=== PATIENT | female | born 1955 | race Caucasian/White ===

== ENCOUNTER 2018-09-08 15:04 | Inpatient (IN) ==
[2018-09-08] MEDS ORDERED: SODIUM CHLORIDE 0.9% 1000ML 2,000 ML IV ONE (15:22)
--- NOTE | 2018-09-08 15:25 | CT Scan Report ---
HEAD CT NONCONTRAST CT DOSE: 1074.96 mGy.cm HISTORY: Stroke symptoms. Stroke evaluation TECHNIQUE: Multiaxial CT images of the head were performed without the use of intravenous contrast. A utomated exposure control was utilized for this study. A dose lowering technique was utilized adheri ng to the principles of ALARA. Comparison: Head CT 12/10/2012. Findings: Mucosal thickening within the ethmoid air cells and bubbly secretions within the maxillary sinuses. The calvarium and skull base are intact. The ventricles and sulci are within normal limits. There is no mass, hematoma, midline shift, or acute infarct. Impression: No acute intracranial abnormality. Mild sinus disease as described above. Electronically signed by: Luke Wilson M.D. 09/08/2018 3:24 PM
[2018-09-08 15:35] LABS: Basophils # (auto) 0.02 K/uL (0-0.2); Basophils % (auto) 0.3 %; Eosinophils % (auto) 4.4 %; Hematocrit (blood only) 36.4 % (37-47); Hemoglobin 12.1 g/dL (12.0-16.0); Immature Granulocytes # (auto) 0.01 K/uL (0.00-0.02); Immature Granulocytes % (auto) 0.1 %; Lymphocytes # (auto) 2.58 K/uL (1.2-3.4); Mean Corpuscular Hgb Conc 33.2 g/dL (32-36); Mean Corpuscular Volume 93.3 fL (80-100); Mean Platelet Volume 10.2 fL (7.4-10.4); Monocytes # (auto) 0.29 K/uL (0.11-0.59); Monocytes % (auto) 4.3 %; Neutrophils # (auto) 3.59 K/uL (1.4-6.5); Neutrophils % (auto) 52.9 %; Platelet Count 201 K/uL (130-400); RDW Standard Deviation 47.7 fL (36.4-46.3); White Blood Count 6.79 K/uL (4.8-10.8)
[2018-09-08 15:52] LABS: Alanine Aminotransferase 21 U/L (12-78); Albumin Level 3.1 gm/dl (3.4-5.0); Aspartate Aminotransferase 18 U/L (15-37); BUN Creatinine Ratio 7.9 (10-20); Blood Urea Nitrogen 7 mg/dl (7-18); Calcium 8.2 mg/dl (8.5-10.1); Carbon Dioxide 23 mmol/L (21-32); Chloride 107 mmol/L (98-107); Creatinine Clr Calc Pharmacy 64.2 ml/min; Est GFR (African American) 85.7; Glucose 91 mg/dl (70-99); Magnesium 1.9 mg/dl (1.8-2.4); Potassium 3.4 mmol/L (3.5-5.1); Sodium 139 mmol/L (136-145)
[2018-09-08 15:57] LABS: Albumin Globulin Ratio 0.9 (0.9-2); Alkaline Phosphatase 66 U/L (45-117); Bilirubin,Total 0.2 mg/dl (0.2-1); Globulin 3.3 gm/dl (2.5-4.0); Total Protein 6.4 gm/dl (6.4-8.2); Troponin I < 0.015 ng/ml (0-0.045)
[2018-09-08 16:00] LABS: Partial Thromboplastin Time 26.2 Seconds (21.0-31.0); Prothrombin Time 10.7 Seconds (9.0-12.0)
[2018-09-08 16:12] LABS: Acetaminophen < 2 ug/ml (10-30)
[2018-09-08 16:26] LABS: Amphetamines+Metham, Urine Neg (Neg); Barbiturates, Urine Neg (Neg); Benzodiazepine, Urine Neg (Neg); Cocaine, Urine Neg (Neg); MDMA (Ecstacy), Urine Pos (Neg); Methadone, Urine Neg (Neg); Opiate, Urine Neg (Neg); Phencyclidine, Urine Neg (Neg)
[2018-09-08] MEDS ORDERED: SODIUM CHLORIDE 0.9% 1000ML 1,000 ML IV ONE (16:50)
--- NOTE | 2018-09-08 20:00 | Emergency Department Note ---
Entered by Enriqueta Holland acting as a scribe for Yo Desir DO History of Present Illness General Chief complaint: Overdose (Intentional) Source: patient, EMS and old records reviewed Limitations: other (mentation) History of Present Illness Provider complaint: stroke-symptoms Onset (ago): minute(s) (occurring around 1430 today) Location: head Quality: + other (stroke symptoms) The patient is a 62 year old female who presents to the Emergency Room with complaints of stroke symptoms occurring around 1430 today. The patient reports that nothing hurts. The patient does report drinking alcohol today. Limited HPI secondary to mentation. Review of EMR shows that the patient has a history of HTN, a TIA, and smoking. Per EMS call,the patient was smoking around 0230, then slumped in her chair with a right-sided deficit. Per EMS, the patient was not able to move her right arm initially but now is able to. Home Medications Home Medications Medication Instructions Recorded Confirmed Type albuterol sulfate 2 puff INHALATION Q4H PRN 09/08/18 09/08/18 History aspirin 81 mg PO DAILY 09/08/18 09/08/18 History atenolol 100 mg PO DAILY 09/08/18 09/08/18 History bupropion HCl [Wellbutrin SR] 100 mg PO BID 09/08/18 09/08/18 History clonazepam 1 - 2 mg PO DAILY PRN 09/08/18 09/08/18 History hydroxyzine pamoate 25 mg PO QID PRN 09/08/18 09/08/18 History methylphenidate HCl 18 mg PO QAM 09/08/18 09/08/18 History tizanidine 4 mg PO Q6H PRN 09/08/18 09/08/18 History Allergies Allergy/AdvReac Type Severity Reaction Status Date / Time codeine Allergy Mild Verified 09/08/18 17:15 Sulfa (Sulfonamide Allergy Mild Verified 09/08/18 17:15 Antibiotics) amoxicillin Allergy Unknown POSSIBLY Verified 09/08/18 17:15 CAUSED RASH clavulanic acid Allergy Unknown POSSIBLY Verified 09/08/18 17:15 CAUSED RASH Past Med/Surg History Medical History TIA (transient ischemic attack) (Acute) HTN (hypertension) (Chronic) Social History Smoking Status: Current every day smoker Review of Systems Limited ROS secondary to mentation. Physical Exam Vital Signs Vital Signs - 24 hr 09/08/18 15:22 09/08/18 15:39 09/08/18 16:00 Temperature 36.7 C Temperature Source Oral Sepsis Recent Fever Within 48 Hours No Sepsis New/Unexplained Change in Mental Status Yes Sepsis Action Taken by Nursing No Action Required Pulse Rate 63 56 L Pulse Rate [Apical] 65 Pulse Rate from SpO2 Sensor 55 L Respiratory Rate 18 18 14 Blood Pressure 84/53 L 86/49 L Blood Pressure [Right Arm] 94/50 L Blood Pressure Mean 63 61 Blood Pressure Mean [Right Arm] 64 Pulse Oximetry 93 100 99 Oxygen Delivery Method Room Air Nasal Cannula Oxygen Flow Rate 2 09/08/18 16:22 09/08/18 16:30 09/08/18 17:10 Temperature Temperature Source Sepsis Recent Fever Within 48 Hours Sepsis New/Unexplained Change in Mental Status Sepsis Action Taken by Nursing Pulse Rate 57 L 54 L 53 L Pulse Rate [Apical] Pulse Rate from SpO2 Sensor 56 L 54 L Respiratory Rate 18 18 18 Blood Pressure 71/45 L 88/47 L 88/50 L Blood Pressure [Right Arm] Blood Pressure Mean 53 60 62 Blood Pressure Mean [Right Arm] Pulse Oximetry 100 99 98 Oxygen Delivery Method Oxygen Flow Rate 2 2 2 09/08/18 17:15 09/08/18 17:39 09/08/18 18:01 Temperature Temperature Source Sepsis Recent Fever Within 48 Hours Sepsis New/Unexplained Change in Mental Status Sepsis Action Taken by Nursing Pulse Rate 51 L 65 65 Pulse Rate [Apical] Pulse Rate from SpO2 Sensor 51 L 65 Respiratory Rate 18 18 20 Blood Pressure 82/48 L 98/61 L 111/69 Blood Pressure [Right Arm] Blood Pressure Mean 59 73 83 Blood Pressure Mean [Right Arm] Pulse Oximetry 99 96 98 Oxygen Delivery Method Nasal Cannula Oxygen Flow Rate 2 2 09/08/18 18:40 09/08/18 18:47 09/08/18 18:50 Temperature Temperature Source Sepsis Recent Fever Within 48 Hours Sepsis New/Unexplained Change in Mental Status Sepsis Action Taken by Nursing Pulse Rate 63 63 65 Pulse Rate [Apical] Pulse Rate from SpO2 Sensor 63 63 65 Respiratory Rate 18 18 19 Blood Pressure 100/53 L 130/77 Blood Pressure [Right Arm] Blood Pressure Mean 68 94 Blood Pressure Mean [Right Arm] Pulse Oximetry 100 100 99 Oxygen Delivery Method Oxygen Flow Rate 2 09/08/18 19:00 09/08/18 19:02 09/08/18 19:10 Temperature Temperature Source Sepsis Recent Fever Within 48 Hours Sepsis New/Unexplained Change in Mental Status Sepsis Action Taken by Nursing Pulse Rate 63 65 65 Pulse Rate [Apical] Pulse Rate from SpO2 Sensor 62 66 65 Respiratory Rate 18 19 15 Blood Pressure 126/74 Blood Pressure [Right Arm] Blood Pressure Mean 91 Blood Pressure Mean [Right Arm] Pulse Oximetry 98 100 100 Oxygen Delivery Method Oxygen Flow Rate 09/08/18 19:15 09/08/18 19:20 Temperature Temperature Source Sepsis Recent Fever Within 48 Hours Sepsis New/Unexplained Change in Mental Status Sepsis Action Taken by Nursing Pulse Rate 60 63 Pulse Rate [Apical] Pulse Rate from SpO2 Sensor 60 63 Respiratory Rate 20 18 Blood Pressure 129/76 Blood Pressure [Right Arm] Blood Pressure Mean 93 Blood Pressure Mean [Right Arm] Pulse Oximetry 99 99 Oxygen Delivery Method Oxygen Flow Rate GENERAL: Laying in bed, moaning, moving all extremities, disheveled, smells of alcohol on breath. MOUTH: Crushed pills present. EYE EXAM: normal conjunctiva. PERRL and EOM's grossly intact. OROPHARYNX: no exudate, no erythema, lips, buccal mucosa, and tongue normal and mucous membranes are moist NECK: supple, no nuchal rigidity, no adenopathy, non-tender LUNGS: Clear to auscultation. Normal chest wall mechanics HEART: no murmurs, S1 normal and S2 normal ABDOMEN: abdomen soft, non-tender, normo-active bowel, sounds, no masses, no rebound or guarding. BACK: Back is symmetrical on inspection and there is no deformity, no midline tenderness, no CVA tenderness. SKIN: no rashes and no bruising UPPER EXTREMITIES: upper extremities are grossly normal. LOWER EXTREMITIES: No pitting edema. NEURO EXAM: Awakens to sternal rub, able to state name but falls asleep quickly. Moving all extremities. Non-focal. Course ED COURSE: Vital signs were reviewed and showed hypotension. The patients medical record was reviewed The above diagnostic studies were performed and reviewed. ED treatments and interventions as stated above. 1504: The patient was taken to CT scan. 1512: The patient was evaluated in room A1. A complete history and physical examination was performed. 1520: Per nursing staff, the patient did take her Clonazepam. Nursing staff states that the patient stated that she "does not want to live anymore because her life sucks." 1523: I discussed the patient's case with Dr. Redmond [facility] who said to treat the patient clinically. 1604: I spoke with the patient's who said that the patient has made suicidal statements before. 1653: I discussed the patient's case with Maine Louis who will evaluate the patient for further management. Consultations Consultation #1: Dr. Shabazz Neurology Time: 15:23 Consultation #2: Maine Louis Time: 16:53 Administered Medications Discontinued Medications Sodium Chloride (Nss 1000ml) 2,000 mls @ 999 mls/hr IV .Q2H1M ONE Stop: 09/08/18 17:22 Last Infusion: 09/08/18 17:28 Dose: 0 mls/hr Documented by: [id number] Admin: 09/08/18 15:41 Dose: 999 mls/hr Documented by: [id number] Sodium Chloride (Nss 1000ml) 1,000 mls @ 999 mls/hr IV .Q1H1M ONE Stop: 09/08/18 17:50 Last Infusion: 09/08/18 17:35 Dose: 0 mls/hr Documented by: [id number] Admin: 09/08/18 16:45 Dose: 999 mls/hr Documented by: [id number] Medical Decision Making Differential Diagnosis Differential diagnosis: Etiologies such as toxicological process, infection, hypoglycemia, electrolyte abnormalities, cardiac sources, intracerebral event, neurologic process, as well as others were entertained. Medical Records Attestation: I reviewed the patient's medical records. Home Medications Current Medication List: was personally reviewed by me Laboratory Data Attestation: I reviewed the patient's lab results. Result diagrams: 09/08/18 15:19 09/08/18 15: Lab Results 09/08/18 09/08/18 09/08/18 Range/Units 15:19 15:19 15:19 WBC 6.79 (4.8-10.8) K/uL RBC 3.90 L (4.2-5.4) M/uL Hgb 12.1 (12.0-16.0) g/dL Hct 36.4 L (37-47) % MCV 93.3 (80-100) fL MCH 31.0 (25-34) pg MCHC 33.2 (32-36) g/dL RDW Std Deviation 47.7 H (36.4-46.3) fL RDW Coeff of Malik 14.0 (11.5-14.5) % Plt Count 201 (130-400) K/uL MPV 10.2 (7.4-10.4) fL Immature Gran % (Auto) 0.1 % Neut % (Auto) 52.9 % Lymph % (Auto) 38.0 % [place] % (Auto) 4.3 % Eos % (Auto) 4.4 % Baso % (Auto) 0.3 % Immature Gran # (Auto) 0.01 (0.00-0.02) K/uL Neut # (Auto) 3.59 (1.4-6.5) K/uL Lymph # (Auto) 2.58 (1.2-3.4) K/uL [place] # (Auto) 0.29 (0.11-0.59) K/uL Eos # (Auto) 0.30 (0-0.5) K/uL Baso # (Auto) 0.02 (0-0.2) K/uL PT 10.7 (9.0-12.0) Seconds INR 1.0 (0.9-1.1) APTT 26.2 (21.0-31.0) Seconds PTT Ratio 1.0 Sodium 139 (136-145) mmol/L Potassium 3.4 L (3.5-5.1) mmol/L Chloride 107 (98-107) mmol/L Carbon Dioxide 23 (21-32) mmol/L Anion Gap 8.0 (3-11) BUN 7 (7-18) mg/dl Creatinine 0.84 (0.6-1.2) mg/dl Est Cr Clr Drug Dosing 64.2 ml/min Est GFR ( Amer) 85.7 Est GFR (Non-Af Amer) 74.0 BUN/Creatinine Ratio 7.9 L (10-20) Glucose 91 (70-99) mg/dl Calcium 8.2 L (8.5-10.1) mg/dl Magnesium 1.9 (1.8-2.4) mg/dl Total Bilirubin 0.2 (0.2-1) mg/dl AST 18 (15-37) U/L ALT 21 (12-78) U/L Alkaline Phosphatase 66 (45-117) U/L Troponin I < 0.015 (0-0.045) ng/ml Total Protein 6.4 (6.4-8.2) gm/dl Albumin 3.1 L (3.4-5.0) gm/dl Globulin 3.3 (2.5-4.0) gm/dl Albumin/Globulin Ratio 0.9 (0.9-2) Salicylates (2.8-20) mg/dl Urine Opiates Screen (Neg) Ur Methadone, Qual (Neg) Acetaminophen (10-30) ug/ml Urine Barbiturates (Neg) Ur Phencyclidine (PCP) (Neg) U Amphetamin/Meth Scrn (Neg) Urine MDEA MDMA (Ecstasy) Screen (Neg) MDMA Urine MDMA U Benzodiazepines Scrn (Neg) Ur Cocaine Metabolite (Neg) U Marijuana (THC) Screen (Neg) Ethyl Alcohol mg/dL (0-3) mg/dl Blood Type Antibody Screen 09/08/18 09/08/18 09/08/18 Range/Units 15:19 15:19 15:26 WBC (4.8-10.8) K/uL RBC (4.2-5.4) M/uL Hgb (12.0-16.0) g/dL Hct (37-47) % MCV (80-100) fL MCH (25-34) pg MCHC (32-36) g/dL RDW Std Deviation (36.4-46.3) fL RDW Coeff of Malik (11.5-14.5) % Plt Count (130-400) K/uL MPV (7.4-10.4) fL Immature Gran % (Auto) % Neut % (Auto) % Lymph % (Auto) % [place] % (Auto) % Eos % (Auto) % Baso % (Auto) % Immature Gran # (Auto) (0.00-0.02) K/uL Neut # (Auto) (1.4-6.5) K/uL Lymph # (Auto) (1.2-3.4) K/uL [place] # (Auto) (0.11-0.59) K/uL Eos # (Auto) (0-0.5) K/uL Baso # (Auto) (0-0.2) K/uL PT (9.0-12.0) Seconds INR (0.9-1.1) APTT (21.0-31.0) Seconds PTT Ratio Sodium (136-145) mmol/L Potassium (3.5-5.1) mmol/L Chloride (98-107) mmol/L Carbon Dioxide (21-32) mmol/L Anion Gap (3-11) BUN (7-18) mg/dl Creatinine (0.6-1.2) mg/dl Est Cr Clr Drug Dosing ml/min Est GFR ( Amer) Est GFR (Non-Af Amer) BUN/Creatinine Ratio (10-20) Glucose (70-99) mg/dl Calcium (8.5-10.1) mg/dl Magnesium (1.8-2.4) mg/dl Total Bilirubin (0.2-1) mg/dl AST (15-37) U/L ALT (12-78) U/L Alkaline Phosphatase (45-117) U/L Troponin I (0-0.045) ng/ml Total Protein (6.4-8.2) gm/dl Albumin (3.4-5.0) gm/dl Globulin (2.5-4.0) gm/dl Albumin/Globulin Ratio (0.9-2) Salicylates 3.0 (2.8-20) mg/dl Urine Opiates Screen (Neg) Ur Methadone, Qual (Neg) Acetaminophen < 2 L (10-30) ug/ml Urine Barbiturates (Neg) Ur Phencyclidine (PCP) (Neg) U Amphetamin/Meth Scrn (Neg) Urine MDEA MDMA (Ecstasy) Screen (Neg) MDMA Urine MDMA U Benzodiazepines Scrn (Neg) Ur Cocaine Metabolite (Neg) U Marijuana (THC) Screen (Neg) Ethyl Alcohol mg/dL 273.5 H (0-3) mg/dl Blood Type O Positive Antibody Screen NEGATIVE 09/08/18 09/08/18 Range/Units 15:31 15:31 WBC (4.8-10.8) K/uL RBC (4.2-5.4) M/uL Hgb (12.0-16.0) g/dL Hct (37-47) % MCV (80-100) fL MCH (25-34) pg MCHC (32-36) g/dL RDW Std Deviation (36.4-46.3) fL RDW Coeff of Malik (11.5-14.5) % Plt Count (130-400) K/uL MPV (7.4-10.4) fL Immature Gran % (Auto) % Neut % (Auto) % Lymph % (Auto) % [place] % (Auto) % Eos % (Auto) % Baso % (Auto) % Immature Gran # (Auto) (0.00-0.02) K/uL Neut # (Auto) (1.4-6.5) K/uL Lymph # (Auto) (1.2-3.4) K/uL [place] # (Auto) (0.11-0.59) K/uL Eos # (Auto) (0-0.5) K/uL Baso # (Auto) (0-0.2) K/uL PT (9.0-12.0) Seconds INR (0.9-1.1) APTT (21.0-31.0) Seconds PTT Ratio Sodium (136-145) mmol/L Potassium (3.5-5.1) mmol/L Chloride (98-107) mmol/L Carbon Dioxide (21-32) mmol/L Anion Gap (3-11) BUN (7-18) mg/dl Creatinine (0.6-1.2) mg/dl Est Cr Clr Drug Dosing ml/min Est GFR ( Amer) Est GFR (Non-Af Amer) BUN/Creatinine Ratio (10-20) Glucose (70-99) mg/dl Calcium (8.5-10.1) mg/dl Magnesium (1.8-2.4) mg/dl Total Bilirubin (0.2-1) mg/dl AST (15-37) U/L ALT (12-78) U/L Alkaline Phosphatase (45-117) U/L Troponin I (0-0.045) ng/ml Total Protein (6.4-8.2) gm/dl Albumin (3.4-5.0) gm/dl Globulin (2.5-4.0) gm/dl Albumin/Globulin Ratio (0.9-2) Salicylates (2.8-20) mg/dl Urine Opiates Screen Neg (Neg) Ur Methadone, Qual Neg (Neg) Acetaminophen (10-30) ug/ml Urine Barbiturates Neg (Neg) Ur Phencyclidine (PCP) Neg (Neg) U Amphetamin/Meth Scrn Neg (Neg) Urine MDEA Cancelled MDMA (Ecstasy) Screen Pos H (Neg) MDMA Cancelled Urine MDMA Cancelled U Benzodiazepines Scrn Neg (Neg) Ur Cocaine Metabolite Neg (Neg) U Marijuana (THC) Screen Neg (Neg) Ethyl Alcohol mg/dL (0-3) mg/dl Blood Type Antibody Screen Imaging Data Radiologist's Impression: Radiology results as stated below per my review and the radiologist's interpretation: HEAD CT NONCONTRAST CT DOSE: 1074.96 mGy.cm HISTORY: Stroke symptoms. Stroke evaluation TECHNIQUE: Multiaxial CT images of the head were performed without the use of intravenous contrast. Automated exposure control was utilized for this study. A dose lowering technique was utilized adhering to the principles of ALARA. Comparison: Head CT 12/10/2012. Findings: Mucosal thickening within the ethmoid air cells and bubbly secretions within the maxillary sinuses. The calvarium and skull base are intact. The ventricles and sulci are within normal limits. There is no mass, hematoma, midline shift, or acute infarct. Impression: No acute intracranial abnormality. Mild sinus disease as described above. Electronically signed by: Luke Wilson M.D. 09/08/2018 3:24 PM ECG Data Attestation: I personally reviewed and interpreted this ECG as follows: Indication: other (toxicologic) Rate (beats per minute): 65 Rhythm: sinus rhythm Findings: + other (normal axis); no PVC Blood Pressure Blood Pressure Findings: Low blood pressure Blood Pressure Disposition: further management by hospitalist DELVIS Narrative Patient is a 62-year-old female that presents the ER as a stroke alert. Paramedics she was unresponsive with her right side being flaccid. Upon arrival she had a smell of alcohol on her did appear to have crushed up pills in her mouth. IV was established and labs were obtained and shows no significant leukocytosis or anemia. INR was unremarkable. BMP with mild hypokalemia. LFTs troponin was unremarkable. Tox was positive for MDMA. Salicylates and acetami nophen was negative. Alcohol was positive at 275. Do favor the pills in the mouth were benzos. Patient was slightly coherent and was making statements that she went to and did not want to live. CT head was negative. She was given 3 L IV normal saline and systolic pressures were intermittently in the 70s and 80s. He did trend upwards into the 90s. EKG was unremarkable. Discussed with the hospitalist patient was admitted for further workup likely secondary to multidrug overdose. Impression & Plan Benzodiazepine overdose, Alcohol abuse, Alcohol overdose Critical Care Time I have personally spent greater than 35 minutes of critical care time in the direct management of this patient. This includes bedside care, interpretation of diagnostic studies, and testing, discussion with consultants, patient, and family members, and other required patient management activities. This 35 minutes is in excess of all separately billable procedures. Critical Care Time: Yes Total Critical Care Time: 35 Discharge Plan Visit Data Chief Complaint: Overdose (Intentional) ED Provider: Yo Desir Discharge Problem: Benzodiazepine overdose, Alcohol abuse, Alcohol overdose Patient Disposition: Being Evaluated by Hospitalist Forms Stand Alone Forms: [facility] Prescriptions Prescriptions: No Action tizanidine 4 mg tablet 4 mg PO Q6H PRN (Reason: Muscle Spasm) RF: 0 clonazepam 1 mg tablet 1 - 2 mg PO DAILY PRN (Reason: Sleep) RF: 0 atenolol 25 mg tablet 100 mg PO DAILY RF: 0 aspirin 81 mg Tablet,Delayed Release (Dr/Ec) 81 mg PO DAILY RF: 0 bupropion HCl [Wellbutrin SR] 100 mg tablet sustained-release 12 hr 100 mg PO BID RF: 0 methylphenidate HCl 18 mg tablet extended release 24hr 18 mg PO QAM RF: 0 hydroxyzine pamoate 25 mg capsule 25 mg PO QID PRN (Reason: Anxiety) RF: 0 albuterol sulfate 2 puff 2 puff Inhalation Q4H PRN (Reason: Shortness Of Breath Or Wheezing) RF: 0 Referrals Referrals: Adam Rooney [Primary Care Provider] - Discharge Problem: Benzodiazepine overdose Qualifiers: Encounter type: initial encounter Injury intent: undetermined intent Qualified Code(s): T42.4X4A - Poisoning by benzodiazepines, undetermined, initial encounter Alcohol overdose Qualifiers: Encounter type: initial encounter Injury intent: undetermined intent Qualified Code(s): T51.94XA - Toxic effect of unspecified alcohol, undetermined, initial encounter The scribe's documentation has been prepared under my direction and personally reviewed by me in its entirety. I confirm that the note above accurately reflects all work, treatment, procedures, and medical decision making performed by me.
[2018-09-08] MEDS: NICOTINE 21 MG/24 HR TDSY TD SCH (20:12)
[2018-09-08] MEDS ORDERED: NITROGLYCERIN SL 0.4 MG/TAB TAB SL PRN (21:08)
[2018-09-08] MEDS ORDERED: ALBUT/IPRATROP 3MG/0.5MG NEB 3 ML VIAL NEB PRN (21:08)
[2018-09-08] MEDS ORDERED: THIAMINE HCL 100 MG TAB PO STA (21:46)
[2018-09-08] MEDS ORDERED: MULTI-VITAMIN INFUSION 10 ML, THIAMINE HCL 100 MG, FOLIC ACID 1 MG in SODIUM CHLORIDE 0... IV SCH (22:00)
[2018-09-08] MEDS ORDERED: POTASSIUM CHLORIDE 10 MEQ TABCR PO STA (22:53)
--- NOTE | 2018-09-08 22:58 | History and Physical Report ---
DATE OF ADMISSION: 09/08/2018 CHIEF COMPLAINT: Unresponsive episode, drug overdose. HISTORY OF PRESENT ILLNESS: This is a 62-year-old female with past medical history significant for chronic bronchitis, hypertension, irritable bowel syndrome, history of depression, tobacco abuse disorder, ADHD, who lives with her family, was brought in because of unresponsive episode. As per family, she drinks daily, but in the last 1-2 months she is trying to quit on her own and she is getting paranoid, hallucinations, and she saw her counselor recently who placed her on bupropion. Last night she complained of headache, dizziness, seems did not drink yesterday and today morning she went and bought 1 L of gin and drank whole bottle and around 2pm she was fine, talking, walking; around 2:30 daughter says that she generally goes outside to smoke and she found her unresponsive in her room. EMS was called in. Initially, there was question of some weakness in the right leg. Stroke alert was called, but when she came to the ER, she was able to arouse with a deep sternal rub and moved her extremities. CT of the head was unremarkable. Blood pressure on the lower side and she got the fluids in the ER and slowly improving. Heart rate, initially was bradycardic. Initially, she was very difficult to arouse and when asked says life sucks and she could not tell her name, and that she was surprised she is in the hospital. Later she was more alert and awake and her heart rate and blood pressure improved. She admitted to taking couple of doses of extra atenolol and thinks she might have taken few doses of extra Klonopin, hydroxyzine, and tizanidine. She says that she purposefully took it to just pass out and says her life sucks. Denies any chest pain. No nausea, no vomiting, no shortness of breath, no abdominal pain, no cough, no recent fever or chills. As per family, normal bowel and bladder movements. Appetite not that great in the last few days. Could not get much review of symptoms from the patient at this time.Pills were found in her mouth when she came in. ALLERGIES: AUGMENTIN, CIPROFLOXACIN, CLINDAMYCIN, CODEINE, CYCLOBENZAPRINE, MORPHINE, STRATTERA, SULFA ANTIBIOTICS. PAST MEDICAL HISTORY: As mentioned above. PAST SURGICAL HISTORY: Colonoscopy with biopsy, EGD, dilatation, tonsillectomy, vaginal delivery. MEDICATIONS: The patient is on atenolol 100 mg p.o. daily, bupropion 100 mg p.o. b.i.d. time, Klonopin 1 to 2 tablets b.i.d. p.r.n., Zanaflex 4 mg p.o. q. 6 hours p.r.n., methylphenidate 18 mg p.o. daily, albuterol 2 puffs every 4 hours p.r.n., DuoNebs every 6 hours p.r.n., hydroxyzine 25 mg p.o. daily as needed, aspirin 325 mg one tablet 4 times a week, multivitamins daily. FAMILY HISTORY: Significant for mother had blood clots, hepatitis C, heart disorder. Father has heart disorder, cancer. Daughter has allergies, asthma, hepatitis C. SOCIAL HISTORY: Lives with her and daughter. Smokes half pack a day for the last 30 years. Alcohol, drinks daily. Drugs, occasional marijuana. REVIEW OF SYSTEMS: As per HPI. Rest of the review of systems could not be obtained at this time. PHYSICAL EXAMINATION: GENERAL: The patient initially was drowsy, but now alert and awake, not in acute distress. VITAL SIGNS: Temperature 36.7, pulse ranging from 54-65, blood pressure was 71/45, currently 111/69, oxygen 98% on 2 liters. HEENT: No pallor, no icterus. Pupils equal, round, reactive to light. Oral mucosa dry. NECK: No JVD, no carotid bruits, no neck masses. CARDIOVASCULAR: S1, S2 heard, regular rate and rhythm, no murmur, no gallop. RESPIRATORY SYSTEM: Normal AP diameter. No accessory muscle use. No wheezing, no crackles. ABDOMEN: Soft, bowel sounds present, nontender. No distention. CENTRAL NERVOUS SYSTEM: Alert and awake. Initially was disoriented to name. Currently, obeys simple commands, moves extremities. Nonfocal e. LABORATORY DATA: WBC 6.7, hemoglobin 12.1, hematocrit 36.4, platelets 201. PT 10.7, INR 1, APTT 26.2. Sodium 139, potassium 3.4, chloride 107, bicarb 23, BUN 7, creatinine 0.8, serum glucose 91, calcium 8.2, magnesium 1.9, total bilirubin 0.2, AST 18, ALT 21, alkaline phosphatase 66, troponin I less than 0.015. Toxicology screen, salicylates 3, Tylenol less than 2, MDMA screen positive, ethyl alcohol 273. IMAGING DATA: CT of the head, no acute intracranial abnormality. EKG: Normal sinus rhythm at rate of 65, no acute ST changes seen. ASSESSMENT AND PLAN: This is a 62-year-old female who presents with unresponsive episode, mostly from alcoholism and drug overdose. 1. Unresponsive episode, mostly from alcoholism and drug overdose. Drank about a liter of gin today, alcohol is 273. 2. Took extra doses of home medications, Klonopin, atenolol, hydroxyzine, and Zanaflex. She says she took about 2-3 extra tablets. Initially was bradycardic and hypotensive in the ER and unresponsive. CT of the head is unremarkable. Later she was more alert and awake and the vitals are stabilized. Received fluids in the ER. Spoke with poison control, advised to observe and repeat labs in a.m. and if QTs prolong, to give magnesium to keep magnesium level greater than 2 and if QRS widens greater 120, to give bicarbonate. Currently, she is okay. We will repeat EKG in the a.m. Closely monitor in the tele floor. We will hold her home medications. Consult psychiatry in the morning as patient says she took her medication to pass out and seems depressed.One on one observation. 3. Alcoholism. The patient drinks daily. As per family, she is trying to quit on her own the last 2 months and she is getting hallucinations and paranoid probably from the withdrawals and she drank 1 liter of alcohol today and also took extra dose of Klonopin. Her alcohol level is 273. We will give her banana bag, p.o. thiamine, and multivitamin from a.m. and because the patient already took extra dose of Klonopin for today and she is somewhat drowsy will start her on alcohol withdrawal protocol with gabapentin from the a.m. and closely monitor in the tele floor for any withdrawal symptoms. 4. Hypertension. Currently hypotension. She is on atenolol 100 mg daily at home, currently overdosed. She says on top of her regular dose, she took about 2 or 3 tablets extra. We will hold atenolol for now and monitor her blood pressure. When the blood pressure comes up, will start her home medication. 5. History of attention deficit hyperactivity disorder. We will hold the home meds for now. Psychiatry Consulted. 6. Chronic bronchitis, tobacco abuse. Will continue her home inhalers and nebs. Will hold Wellbutrin for now. 7. Deep venous thrombosis prophylaxis, sequential compression devices for now. 8. Disposition: Closely monitor in the tele floor. Level 1 full code. MTDD
[2018-09-09] MEDS ORDERED: SODIUM CHLORIDE 0.9% 1000ML 1,000 ML IV SCH
[2018-09-09 05:50] LABS: Basophils # (auto) 0.03 K/uL (0-0.2); Basophils % (auto) 0.3 %; Eosinophils # (auto) 0.29 K/uL (0-0.5); Eosinophils % (auto) 3.3 %; Hematocrit (blood only) 37.1 % (37-47); Hemoglobin 12.3 g/dL (12.0-16.0); Immature Granulocytes # (auto) 0.01 K/uL (0.00-0.02); Immature Granulocytes % (auto) 0.1 %; Lymphocytes # (auto) 1.43 K/uL (1.2-3.4); Lymphocytes % (auto) 16.5 %; Mean Corpuscular Hgb Conc 33.2 g/dL (32-36); Mean Corpuscular Volume 93.7 fL (80-100); Mean Platelet Volume 10.2 fL (7.4-10.4); Monocytes # (auto) 0.53 K/uL (0.11-0.59); Monocytes % (auto) 6.1 %; Neutrophils # (auto) 6.39 K/uL (1.4-6.5); Neutrophils % (auto) 73.7 %; Platelet Count 187 K/uL (130-400); RDW Coefficient of Variation 14.2 % (11.5-14.5); RDW Standard Deviation 48.9 fL (36.4-46.3); Red Blood Count 3.96 M/uL (4.2-5.4); White Blood Count 8.68 K/uL (4.8-10.8)
[2018-09-09 06:29] LABS: Alanine Aminotransferase 28 U/L (12-78); Albumin Level 3.2 gm/dl (3.4-5.0); Alkaline Phosphatase 67 U/L (45-117); Aspartate Aminotransferase 34 U/L (15-37); Bilirubin Direct < 0.1 mg/dl (0-0.2); Bilirubin,Total 0.4 mg/dl (0.2-1); Total Protein 6.4 gm/dl (6.4-8.2)
[2018-09-09 07:00] LABS: BUN Creatinine Ratio 9.3 (10-20); Calcium 7.9 mg/dl (8.5-10.1); Creatinine Clr Calc Pharmacy 85.6 ml/min; Est GFR (African American) 110.6; Est GFR (Non-African American) 95.5; Magnesium 1.6 mg/dl (1.8-2.4); Potassium 4.2 mmol/L (3.5-5.1)
[2018-09-09 08:02] LABS: Folate (Folic Acid) > 24.00 ng/ml (>5.38); Vitamin B12 747 pg/ml (211-911)
[2018-09-09] MEDS ORDERED: CEROVITE ADV FORMULA TAB PO SCH (09:00)
[2018-09-09] MEDS: NICOTINE 21 MG/24 HR TDSY TD SCH (09:24)
[2018-09-09] MEDS: MAGNESIUM SULFATE / D5W 1 GM/100 ML BAG IV SCH ×4 (09:24→12:48)
[2018-09-09] MEDS ORDERED: ATENOLOL 50 MG TABLET PO ONE (11:02)
--- NOTE | 2018-09-09 11:09 | Hospitalist Progress Note ---
Date of Service September 09, 2018 Assessment & Plan (1) Depression with suicidal ideation: Feels fine this morning. Hemodynamically stable and asking for food. States she feels stupid and appears remorseful about how she ended up here. Source of stress is reported in her life. She reports having a plan on how to avoid this moving forward. States she has never had suicidal ideations in the past. She is never been hospitalized for mental health condition. She reports a known history of ADHD and was previously on Concerta but this was making her feel bad. Her psychiatrist recommended she continue Wellbutrin therapy and counseling and this will treat the ADHD as well. Will await psychiatric disposition regarding need for inpatient treatment. (2) Alcohol overdose: Doing well. Continues on alcohol withdrawal protocol. (3) Palpitations: Takes atenolol 100 mg daily for palpitations. She reports overdosing only on clonazepam and states that she needs her atenolol as she feels withdrawal symptoms. Heart rate stable overnight. No glucagon was needed. Will continue atenolol now. (4) Smoker: NicoDerm patch. (5) DVT prophylaxis: SCDs, ambulation Full code Disposition-pending psychiatric recommendations. Patient is medically stable for discharge. Sandra Downs DO [facility] Hospitalist Subjective 62-year-old female who suffers from ADHD and depression at baseline presented to the hospital after overdosing on alcohol and multiple medications. This morning she reports she only took an excess of clonazepam. She reports not having a plan to hurt herself but has been dealing with mental abuse and was very passive in her actions. She is remorseful this morning and denies any suicidal ideations at this time. She is hungry and asking for regular food. She reports her palpitations are present which is a chronic issue for her and she needs her atenolol. She smokes at baseline. Physical Exam Vital Signs (Past 24 Hours): Last Vital Signs Temp 36.5 C 09/09/18 07:25 Pulse 73 09/09/18 07:25 Resp 16 09/09/18 07:25 BP 151/82 H 09/09/18 07:25 Pulse Ox 96 09/09/18 07:25 CONSTITUTIONAL: WNWD, vitals as above, generally well-appearing EYES: normal conjuctivae, no scleral icterus ENT: MMM NECK: trachea midline RESPIRATORY: clear to auscultation bilaterally, no crackles, rales or wheezes, normal respiratory effort CARDIOVASCULAR: regular rate and rhythm, S1 and 2 heard without murmurs, gallops or rubs, no JVD, no peripheral edema GASTROINTESTINAL: normal bowel sounds, soft, nontender, nondistended MUSCULOSKELETAL: strength 5/5 throughout, head is normocephalic and atraumatic SKIN: warm and dry, no track ferris on arms or rashes present NEUROLOGIC: No facial palsy, no dysarthria. CN 2-12 grossly intact, no sensory deficit, normal cognition, normal speech, no tremor PSYCHIATRIC: alert cooperative and oriented to person, place and time. Normal affect. Results & Data Laboratory Results Short CBC 09/08/18 09/09/18 Range/Units 15: 05:40 WBC 6.79 8.68 (4.8-10.8) K/uL Hgb 12.1 12.3 (12.0-16.0) g/dL Hct 36.4 L 37.1 (37-47) % Plt Count 201 187 (130-400) K/uL BMP 09/08/18 09/09/18 15:19 05:40 Sodium 139 142 Potassium 3.4 L 4.2 D Chloride 107 115 H Carbon Dioxide 23 22 BUN 7 6 L Creatinine 0.84 0.63 Glucose 91 85 Calcium 8.2 L 7.9 L Cardiac Enzymes 09/08/18 Range/Units 15:19 Troponin I < 0.015 (0-0.045) ng/ml Liver Function 09/08/18 09/09/18 Range/Units 15:19 05:40 Total Bilirubin 0.2 0.4 (0.2-1) mg/dl Direct Bilirubin < 0.1 (0-0.2) mg/dl AST 18 34 (15-37) U/L ALT 21 28 (12-78) U/L Alkaline Phosphatase 66 67 (45-117) U/L Albumin 3.1 L 3.2 L (3.4-5.0) gm/dl Medications Administered Current Inpatient Medications Albuterol (Duoneb) 3 ml NEB Q4H PRN PRN Reason: Shortness Of Breath Or Wheezing Stop: 10/08/18 21:07 Atenolol (Tenormin) 100 mg PO NOW ONE Stop: 09/09/18 11:03 Sodium Chloride (Nss 1000ml) 1,000 mls @ 100 mls/hr IV .Q10H [place] Stop: 10/09/18 00:00 Last Infusion: 09/09/18 09:24 Dose: 0 mls/hr Documented by: Magnesium Sulfate/Dextrose (Magnesium Sulfate / D5w) 1 gm in 100 mls @ 100 mls/hr IV Q1H [place] Stop: 09/09/18 12:59 Last Admin: 09/09/18 10:30 Dose: 100 mls/hr Documented by: Miscellaneous (Remove Nicoderm Patch) 1 ea N/A HS [facility] Stop: 10/09/18 20:59 Multivitamins/Minerals (Multivitamin W/ Minerals Tab) 1 tab PO QAM [facility] Stop: 10/09/18 08:59 Last Admin: 09/09/18 08:14 Dose: 1 tab Documented by: Nicotine (Nicoderm Cq) 21 mg TD QAM [place] Stop: 10/08/18 19:59 Last Admin: 09/09/18 09:24 Dose: 21 mg Documented by: Nitroglycerin (Nitrostat) 0.4 mg SL UD PRN PRN Reason: Chest Pain Stop: 10/08/18 21:07 (1) Alcohol overdose Encounter type: initial encounter Injury intent: undetermined intent Qualified Code(s): T51.94XA - Toxic effect of unspecified alcohol, undetermined, initial encounter
--- NOTE | 2018-09-09 13:43 | Psychiatric Consultation ---
Date of Consultation September 09, 2018 Impression / Recommendations Impression 62-year-old female seen to evaluate for depression/suicidality following what patient admits was an intentional impulsive overdose. Pt states her intention began as a desire to "escape" but with the addition of alcohol, eventually was less hopeful. Pt clearly reports a safety plan developed by herself with the support of the daughter, and seems rather motivated to follow through. Since her admission, she has denied suicidality and reported remorse and embarrassment when considering her behavior. Pt clearly articulates a plan to this provider to improve her outpatient supports, including more routine visit with her counselor, getting established with a psychiatric prescriber, attending regular AA meetings, and becoming involved in support groups in her area. Pt is also planning to take routine breaks from her stressful home life, but visiting her daughter for several days at a time each week. Daughter is present and supportive of this plan, admits to intention to help mother follow through. It was confirmed that there are no guns present in the home, and that the patient's has secured all medications at patient's request. Pt denies ongoing suicidality and states she does not routinely struggle with these thoughts. Her antidepressant medication regimen has been noticeably beneficial, and patient reports feeling her depressive symptoms have been improving in the last 2 weeks. Would recommend discontinuation of clonazepam for management of anxiety, given ongoing alcohol abuse, and considerable safety risk with coadministration of alcohol and benzodiazepines. Increased risk for misuse of substances. Clearly, our first recommendation is for inpatient D&A rehabilitation to address patient's ongoing alcohol abuse. Pt is not willing for this level of treatment at this time, but will consider should attendance at AA meetings not be beneficial. We discussed likely benefits from inpatient psychiatric admission, and patient feels this will make her condition worse. We discussed safety concerns, which are addressed by her safety plan. Pt denies willingness for psychiatric admission, but will consider this as well should depressive symptoms or suicidal thoughts return. Briefly discussed chance of involuntary admission, and patient verbalized that she would not participate in treatment if this was the case. Risks and benefits of pushing admission were analyzed and discussed with patient, daughter, supervising physician, and attending physician. While patient would likely benefit if invested in treatment, her lack of willingness to engage in treatment does not seem beneficial to her condition overall. It is not clear that much would be gained given no desire to engage, medications changes already made with reported response, support from daughter with verbalized safety plan, and current established sessions with a counselor. Given denial of suicidal thoughts when not under the influence of alcohol, a clearly articulated safety plan, support from daughter, confirmation of safety within the home setting, and limited benefit from forced inpatient admission - it was decided that patient did not appear to be at acute risk of harm to herself or others. Therefore, encouraged patient's safety plan and will support discharge to home when medically cleared. We appreciate the opportunity to participate in the care of this patient. Dr. Marck Alves was directly involved in review and discussion of the patient's case and participated in medical decision making regarding treatment recommendations. (1) Suicidal ideation: 09/09 - Has denied SI adamantly since being deemed cleared of the influence of alcohol, has supports as stated above with plan - Reviewed recommendation for inpatient D&A rehabilitation, which was declined - Reviewed recommendation for inpatient mental health treatment - voluntary admission declined, involuntary admission not deem to be more beneficial than harmful in this situation - Support discharge to home, with compliance with safety plan reported, following medical clearance (2) Depression: 09/09 - prescribed bupropion SR 100mg - takes once daily for the past 2 weeks, recommend continuing - do not recommend continuation of clonazepam, given comorbid alcohol abuse and possibility for misuse as well as considerable safety risk with coadministration. (3) Alcohol abuse: 09/09 - Recommending inpatient D&A rehabilitation, patient declined - Will attend AA meetings and seek support from outpatient therapy for additional resources Inventory Assets Strengths: support of daughter, remorse for actions, current outpatient providers Needs: recognition of need to use outpatient supports Risk Factors Assessment Male: No : Yes Do You Have Access To A Gun?: No Health Problems: Yes Mental Health Diagnoses: Yes Substance Use Disorders: Yes Previous Attempt: No Family History of Suicide: No Previous Psychiatric Hospitalization: No Hopelessness: No Smoker: Yes Protective Factors Assessment Rastafarian Beliefs: Yes : Yes Responsible for Young Children: Yes Supportive Family: Yes (daughter) Good Rapport with Provider: Yes CPT Code 78800 Psych History Identifying Data 62-year-old female admitted medically following impulsive intentional overdose of what was reported by staff to be 6 - 100mg atenolol; 2-3 1mg clonazepam; and 2 - 25mg hydroxzyine in combination with alcohol intake beyond her standard daily use. Pt was initially admitted for what presented as stroke-like symptoms. Information is gathered from the patient and daughter, Tere, whom she allows to be present in room and participate in interview. Reports seem to be mildly emotionally driven, but reliable - as daughter confirms patient's history. Chief Complaint "I'm doing better now, I'm real embarrassed about how stupid that was". History of Present Illness Zhane Delong is a 62-year-old female with PMH of hypertension, IBS, chronic bronchitis, tobacco and alcohol abuse disorders, ADHD, and depression. Pt was admitted to the medical floor after presenting to the ED after an unresponsive episodes with stroke-like symptoms. Pt has been treated medically for what was confirmed to be an intentional overdose. Pt was seen on psychiatric consult service to evaluate for overdose and SI. When this provider entered patient's room, one-on-one support as well as patient's daughter were sitting with the patient. Pt voiced interest in having her daughter present for our conversation and was willing to allow her daughter's participation. Pt states that she feels very "stupid" for her actions, admitting that she had drank a larger amount than usual last evening, and that she did take additional medications to "escape". Pt states her intention initially was to "get a break", but as she had more alcohol, her thoughts converted to "there's no way out, except out." Pt reports significant stressors regarding her and his family. She admits to her alcohol use beginning 8 years ago, when her dcbaly-sz-tzo had . Pt states she was "expected to take her place, to be their clean-up crew, I told them I wasn't doing that." Pt states her is more supportive of his family than of her, and participates in encouraging her to move in with her elderly [id number] to care for the patient's family. Pt admits that she is not suffering physical abuse, but feels the "mindgames" her 's family performs would be "mental abuse." Pt admits to dealing with these behaviors for the past year and last evening getting "fed up". She states she typically consumes [a hand gesture amount estimated to be about 2 shots] "of gin in a glass, mixed with juice for flavor. I'll have about 4 of those, but it's spread out in sips throughout the day." Pt admits last evening to drinking 5-6 of these beverages. BAL on admission was 273. Pt's states she has been struggling with depression since her [id number]-[id number] , and had previously been prescribed venlafaxine ER. Her family doctor had also prescribed Concerta 18mg for a diagnosis of ADHD. Pt states she has not taken this medication in several months due to it worsening pre-existing hypertension. Her doctor started bupropion SR 100mg two weeks ago to assist with both depression and ADHD. She states she has already noticed benefit in both. Pt currently meets routinely with a counselor [facility]. Pt feels supported by the daughter present in the room, and daughter states they have no guns in the home, and the has locked up medications. Daughter confirms that patient's home life is stressful and supports patient's story and feelings. Pt admits to significant stress at home, but states, "I've found ways to make it better. I have to." She reports plan to stay with her daughter for several days during the week, plan to attend AA meetings with intention to stop alcohol use, continue meetings with her counselor, find a psychiatrist, and is willing to consider inpatient D&A rehabilitation or inpatient psychiatric admission "if these things don't work, I'd really like to start here first." Pt denies SI presently, continuing to report that she feels embarrassed about her actions and is remorseful. She has no ongoing safety concerns for herself, and daughter reports feeling comfortable with continuing to support patient's safety plan. Daughter reports feeling as though her mother can be "obsessive" with her anxiety at times, but does not feel her mother is at risk of harm to self - as they have discussed a plan moving forward. Pt was willing to hear this provider's recommendations, which primarily include inpatient D&A rehab. Pt declines this and will only consider if outpatient options fail. We reviewed the benefits of a stay on the inpatient behavioral health unit. Pt states she would consider this in the future. This provider informed patient about our safety concerns, and desire to prevent future actions similar to this. When briefly discussing voluntary or involuntary admission, patient implied that she would not be willing to participate in treatment if this would be the recommendation. Pt denies present SI. She denies HI, SIB, A/V hallucinations, paranoia, OCD, eating disorder, symptoms more consistent with a bipolar presentation, and other specific psychiatric concerns. Past Psychiatric History Previous Psych History: Pt denies history of medication management with a psychiatric prescriber, inpatient psychiatric admission, or inpatient D&A rehabilitation. PCP currently manages medications, and patient sees [facility] for counseling. Current Psychiatric Diagnosis: depression, ADHD Previous Psych Admissions: None Do You Have Access To A Gun?: No History of Previous Suicide Attempt: No Past Medication Trials: Venlafaxine ER Allergies Allergy/AdvReac Type Severity Reaction Status Date / Time codeine Allergy Mild Verified 09/08/18 17:15 Sulfa (Sulfonamide Allergy Mild Verified 09/08/18 17:15 Antibiotics) amoxicillin Allergy Unknown POSSIBLY Verified 09/08/18 17:15 CAUSED RASH clavulanic acid Allergy Unknown POSSIBLY Verified 09/08/18 17:15 CAUSED RASH Home Medications Home Medications Medication Instructions Recorded Confirmed Type albuterol sulfate 2 puff INHALATION Q4H PRN 09/08/18 09/08/18 History aspirin 81 mg PO DAILY 09/08/18 09/08/18 History atenolol 100 mg PO DAILY 09/08/18 09/08/18 History bupropion HCl [Wellbutrin SR] 100 mg PO BID 09/08/18 09/08/18 History clonazepam 1 - 2 mg PO DAILY PRN 09/08/18 09/08/18 History hydroxyzine pamoate 25 mg PO QID PRN 09/08/18 09/08/18 History tizanidine 4 mg PO Q6H PRN 09/08/18 09/08/18 History Substance Abuse History Reports daily alcohol use for the past 8 years, consumes roughly 8oz of liquor over the course of a day. Smokes 1/2 pack of cigarettes per day. Denies marijuana use to this provider. No history of inpatient D&A rehabilitation. Personal History Living Arrangements: Home Living Arrangements Comments: lives with , youngest daughter, and daughter's 2 children Marital Status: Beliefs That Will Affect Care: None Patient History Medical History Alcohol abuse Depression TIA (transient ischemic attack) (Acute) HTN (hypertension) (Chronic) Social History Preferred Language: Iranian Beliefs That Will Affect Care: None Current Living Situation: Family Other Information That Helps Us Care for You: No Feels Safe at Home: Yes Safety Concerns: Feels Safe At This Time Smoking Status: Current every day smoker Hx Alcohol Use: Yes Hx Substance Use: No Physical Exam Psychiatric Orientation: alert, oriented x 3 and cooperative Apperance: appropriately dressed (in hospital gown) and + disheveled Female appearing stated age, but disheveled, wearing glasses and hair down, appears to be in normal range in regard to weight, does not appear to be in any acute distress Eye Contact: good eye contact Motor Behavior: no abnormal motor movements (observed while sitting upright in bed) Speech: normal rate/rhythm/volume of speech Affect: euthymic affect (appears embarrassed and frustrated, but not overtly depressed) "it's been good since that medication" and "not low anymore" Thought Process: goal directed thought process and clear/coherent thought process Thought Content: + preoccupation (with 's family and reported "mindgames" - specifically a "paper") and reality based without delusions Suicidal Thoughts: denies suicidal thoughts Homicidal Thoughts: denies homicidal thoughts Hallucinations: no auditory hallucinations and no visual hallucinations Cognition: recent memory grossly intact, remote memory grossly intact, attention grossly intact and language grossly intact Estimated Intelligence: consistent with education level Insight: + fair insight Judgement: + fair judgement Vital Signs (Past 24 Hours) Last Vital Signs Temp 36.9 C 09/09/18 11:33 Pulse 71 09/09/18 11:33 Resp 16 09/09/18 11:33 BP 163/79 H 09/09/18 11:33 Pulse Ox 96 09/09/18 11:33 Review of Systems Constitutional: denied Cardiovascular: denied Respiratory: denied Gastrointestinal: denied Neurological: denied Psychiatric: denies symptoms other than stated above Total of at least 10 systems reviewed, pertinent positives as above and in HPI. Results & Data Medications Administered Sodium Chloride (Nss 1000ml) 1,000 mls @ 100 mls/hr IV .Q10H [place] Stop: 10/09/18 00:00 Last Infusion: 09/09/18 09:24 Dose: 0 mls/hr Documented by: [id number] Admin: 09/09/18 00:11 Dose: 100 mls/hr Documented by: [id number] Multivitamins/Minerals (Multivitamin W/ Minerals Tab) 1 tab PO [facility] Stop: 10/09/18 08:59 Last Admin: 09/09/18 08:14 Dose: 1 tab Documented by: [id number] Nicotine (Nicoderm Cq) 21 mg TD [facility] Stop: 10/08/18 19:59 Last Admin: 09/09/18 09:24 Dose: 21 mg Documented by: [id number] Admin: 09/08/18 20:12 Dose: 21 mg Documented by: [id number]
--- NOTE | 2018-09-09 14:14 | Discharge Summary ---
Date of Service September 09, 2018 Admission HPI Per Admitting Provider RY OF PRESENT ILLNESS: This is a 62-year-old female with past medical history significant for chronic bronchitis, hypertension, irritable bowel syndrome, history of depression, tobacco abuse disorder, ADHD, who lives with her family, was brought in because of unresponsive episode. As per family, she drinks daily, but in the last 1-2 months she is trying to quit on her own and she is getting paranoid, hallucinations, and she saw her counselor recently who placed her on bupropion. Last night she complained of headache, dizziness, seems did not drink yesterday and today morning she went and bought 1 L of gin and drank whole bottle and around 2pm she was fine, talking, walking; around 2:30 daughter says that she generally goes outside to smoke and she found her unresponsive in her room. EMS was called in. Initially, there was question of some weakness in the right leg. Stroke alert was called, but when she came to the ER, she was able to arouse with a deep sternal rub and moved her extremities. CT of the head was unremarkable. Blood pressure on the lower side and she got the fluids in the ER and slowly improving. Heart rate, initially was bradycardic. Initially, she was very difficult to arouse and when asked says life sucks and she could not tell her name, and that she was surprised she is in the hospital. Later she was more alert and awake and her heart rate and blood pressure improved. She admitted to taking couple of doses of extra atenolol and thinks she might have taken few doses of extra Klonopin, hydroxyzine, and tizanidine. She says that she purposefully took it to just pass out and says her life sucks. Denies any chest pain. No nausea, no vomiting, no shortness of breath, no abdominal pain, no cough, no recent fever or chills. As per family, normal bowel and bladder movements. Appetite not that great in the last few days. Could not get much review of symptoms from the patient at this time.Pills were found in her mouth when she came in. Admission Exam Per Admitting Provider GENERAL: The patient initially was drowsy, but now alert and awake, not in acute distress. VITAL SIGNS: Temperature 36.7, pulse ranging from 54-65, blood pressure was 71/45, currently 111/69, oxygen 98% on 2 liters. HEENT: No pallor, no icterus. Pupils equal, round, reactive to light. Oral mucosa dry. NECK: No JVD, no carotid bruits, no neck masses. CARDIOVASCULAR: S1, S2 heard, regular rate and rhythm, no murmur, no gallop. RESPIRATORY SYSTEM: Normal AP diameter. No accessory muscle use. No wheezing, no crackles. ABDOMEN: Soft, bowel sounds present, nontender. No distention. CENTRAL NERVOUS SYSTEM: Alert and awake. Initially was disoriented to name. Currently, obeys simple commands, moves extremities. Nonfocal e. Principal Diagnosis Intentional drug overdose Discharge Data Allergies Allergy/AdvReac Type Severity Reaction Status Date / Time codeine Allergy Mild Verified 09/08/18 17:15 Sulfa (Sulfonamide Allergy Mild Verified 09/08/18 17:15 Antibiotics) amoxicillin Allergy Unknown POSSIBLY Verified 09/08/18 17:15 CAUSED RASH clavulanic acid Allergy Unknown POSSIBLY Verified 09/08/18 17:15 CAUSED RASH Consultations 09/08/18 16:52 ED Decision to Admit Stat 09/08/18 21:08 Consult Case Management - Discharge Planning Routine 09/09/18 08:00 Consult Psychiatry Routine Ordered Studies 09/08/18 15:00 CT head/brain wo con Stat Hospital Course (1) Depression with suicidal ideation: . (2) Alcohol overdose: (3) Palpitations: (4) Smoker: 62 yo F presented to the ER after an intentional overdose of clonazepam and alcohol. She was altered in the ER and was admitted to the Hospitalist service and placed on telemetry. Per EMS she was initially unable to finish remover her right arm, but later in the ER, she was able to. BP was in the 80s systolic. CT head was negative. Urine tox screen was positive for MDMA and notably she was on Buproprion which is known to come up as a false positive for this. A stroke alert was called and no tPA was indicated. The following morning she was alert and appropriate and remorseful. Psych saw her and cleared her fore discharge. She was sent home in stable condition with close PCP follow-up. Total Time Total Time Spent Total Time Spent (In Minutes): 60 Total Time Includes: Examination of the Patient, Discharge Planning, Medication Reconciliation and Communication With Other Providers Discharge Plan Discharge Items Patient Disposition: Home - Self-Care Reason For Visit: UNRESPONSIVE, DRUG OVERDOSE Discharge Diagnosis: Intentional drug overdose Condition: Good Discharge Goals: Improve disease control and Improve function Activity: Resume your previous activity Non-emergency contact: Primary Care Provider Call non-emergency contact if: you have any medication questions, your symptoms worsen, your pain is not controlled, your pain is worsening, your pain is unusual for you, your pain is concerning for you and you have a fever Follow-up/Referrals: Adam Rooney [Primary Care Provider] - Diet: Regular Addtl Provider Instructions: Please take all medications as instructed on discharge list below. If you feel suicidal in the future please contact the National suicide prevention Lifeline at or seek immediate medical attention. It is strongly recommended that he quit smoking and cut down on alcohol use. Prescriptions: Continued tizanidine 4 mg tablet 4 mg PO Q6H PRN (Reason: Muscle Spasm) RF: 0 clonazepam 1 mg tablet 1 - 2 mg PO DAILY PRN (Reason: Sleep) RF: 0 atenolol 25 mg tablet 100 mg PO DAILY RF: 0 aspirin 81 mg Tablet,Delayed Release (Dr/Ec) 81 mg PO DAILY RF: 0 bupropion HCl [Wellbutrin SR] 100 mg tablet sustained-release 12 hr 100 mg PO BID RF: 0 hydroxyzine pamoate 25 mg capsule 25 mg PO QID PRN (Reason: Anxiety) RF: 0 albuterol sulfate 2 puff 2 puff Inhalation Q4H PRN (Reason: Shortness Of Breath Or Wheezing) RF: 0 Stand-Alone Forms: [facility], Work/School Release (Inpt) [place]/Other Patient Handouts: Depressed Help Loved One, Suicide Warning Signs Others, Depression Suicide Older Adults Discharge Orders: Discharge Order (Routine); Ordered 09/09/18 Ordered By: Sandra Downs Admission Data Admit Date/Time: 09/08/18 18:15 Attending Provider: Sandra Downs Admit Provider: Brandon Gonzalez Primary Care Provider: Adam Rooney Other Providers: Marck Alves Service: Telemetry Other Interventions: Discharge Summary Assessment (RN) Last Done: 09/09/18 14:25 DC Date/Time DO NOT enter until pt leaves facility: 09/09/18 15:00
== END 2018-09-09 15:00 | disposition home or self-care (01) | DRG 918 ==
LOC: ED 15:04 → 2E 18:15
DX: F32.9 Major depressive disorder, single episode, unspecified; F17.200 Nicotine dependence, unspecified, uncomplicated; I10 Essential (primary) hypertension; T51.0X2A Toxic effect of ethanol, intentional self-harm, initial encounter; F10.20 Alcohol dependence, uncomplicated; F90.9 Attention-deficit hyperactivity disorder, unspecified type; Z79.82 Long term (current) use of aspirin; Z79.899 Other long term (current) drug therapy; T42.4X2A Poisoning by benzodiazepines, intentional self-harm, initial encounter; R00.2 Palpitations; R45.851 Suicidal ideations